=== PATIENT | female | born 1995 | race Caucasian/White ===

== ENCOUNTER 2017-08-08 20:35 | Emergency (ER) | END 2017-08-09 02:09 | disposition home or self-care (01) ==

== ENCOUNTER 2017-09-24 19:14 | Emergency (ER) | END 2017-09-24 20:36 | disposition home or self-care (01) ==

== ENCOUNTER 2017-12-16 10:58 | Emergency (ER) | END 2017-12-16 13:47 | disposition home or self-care (01) ==

== ENCOUNTER 2018-02-09 10:43 | Emergency (ER) | END 2018-02-09 10:45 | disposition left against medical advice (07) ==

== ENCOUNTER 2018-02-09 11:03 | Outpatient (CLI) | END 2018-02-09 16:49 | disposition home or self-care (01) ==

== ENCOUNTER 2018-03-14 22:44 | Emergency (ER) | END 2018-03-15 02:43 | disposition home or self-care (01) ==

== ENCOUNTER 2018-04-21 14:56 | Outpatient (CLI) | END 2018-04-21 18:45 | disposition home or self-care (01) ==